=== PATIENT | male | born 2000 | race Caucasian/White ===

== ENCOUNTER 2021-05-06 13:13 | Emergency (ER) | payer OTHER ==
[~2021-05-06] VITALS: Ht 182.9 cm; Wt 65.9 kg
[2021-05-06 13:27] VITALS: BP 149/76; PULSE 85; TEMP 98.4
[2021-05-06 14:04] LABS: STREP SCREEN NEGATIVE
== END 2021-05-06 14:50 | disposition home or self-care (01) ==
LOC: COL.ER 13:13
PROVIDERS: Emergency Medicine
DX: B34.9 Viral infection, unspecified (principal)